=== PATIENT | female | born 1970 | race Caucasian/White ===

== ENCOUNTER 2024-08-17 10:01 | Outpatient (CLI) | payer OTHER | END 2024-08-17 10:02 | disposition home or self-care (01) | LOC: CSHRAD 10:01 | PROVIDERS: ATTEND Surgery | DX: M43.16 Spondylolisthesis, lumbar region (principal); M48.061 Spinal stenosis, lumbar region without neurogenic claudication; M43.17 Spondylolisthesis, lumbosacral region | CPT/HCPCS: 72110 ==